=== PATIENT | male | born 1950 | race Caucasian/White ===

== ENCOUNTER 2016-11-18 09:49 | Inpatient (IN) | payer OTHER, BC ==
[~2016-11-18] VITALS: Ht 182.9 cm; Wt 106.1 kg
[~2016-11-18 09:49] MED LIST: ATORVASTATIN CA80 MG PO; FLEXERIL10 MG PO; PREDNISONE10 MG PO; ULTRAM50 MG PO; ZESTORETIC 20-1 EAC1 PO
[2016-11-18 12:03] LABS: HEMATOCRIT 44.3 % (38.0-50.0); MCH 29.1 PG (29.0-34.0); MCHC 32.5 G/DL (30.0-36.0); MCV 89.7 FL (86-99); PLATELET COUNT 198 K/uL (156-360); RBC DIS.WIDTH-CV 13.3 % (11.8-14.6); RBC DIS.WIDTH-SD 43.6 % (39-53); RED BLOOD COUNT 4.94 M/uL (4.00-5.50); WHITE BLOOD COUNT 10.1 K/uL (4.1-10.2)
[2016-11-18 12:12] LABS: INTER. NORMALIZED RATIO 1.1; PROTHROMBIN TIME 11.4 (9.2-11.2)
[2016-11-18 12:15] LABS: CHLORIDE 106 mEq/L (99-109); POTASSIUM 4.7 mEq/L (3.7-5.4); SODIUM 141 mEq/L (136-147)
[2016-11-18 12:17] LABS: GLUCOSE 130 mg/dL (70-99)
[2016-11-18 12:19] LABS: ANION GAP 9 MEQ/L (2-14); TOTAL BILIRUBIN 0.8 mg/dL (0.0-1.0)
[2016-11-18 12:21] LABS: ALKALINE PHOSPHATASE 72 IU/L (3-129); GFR ESTIMATE (CALCULATED) > 59 mL/min/
[2016-11-18 12:22] LABS: UREA NITROGEN (BUN) 19 mg/dL (9-23)
[2016-11-18] MEDS ORDERED: HYDROCHLOROTHIA25 MG PO (15:00)
[2016-11-18] MEDS ORDERED: LOPID600 MG PO (15:00)
[2016-11-18] MEDS ORDERED: LO-DOSE ASPIRIN81 M2 PO (15:01)
[2016-11-18 17:50] VITALS: BP 161/75
[2016-11-18 19:32] VITALS: BP 132/69
[2016-11-18 22:59] VITALS: BP 135/68
[2016-11-19 03:53] VITALS: BP 122/64
[2016-11-19 04:10] LABS: HEMATOCRIT 39.5 % (38.0-50.0); MCH 28.8 PG (29.0-34.0); MCHC 32.4 G/DL (30.0-36.0); MEAN PLAT.VOLUME 8.9 uM^3 (9.0-12.4); PLATELET COUNT 193 K/uL (156-360); RBC DIS.WIDTH-CV 13.3 % (11.8-14.6); RBC DIS.WIDTH-SD 43.7 % (39-53); RED BLOOD COUNT 4.44 M/uL (4.00-5.50); WHITE BLOOD COUNT 9.8 K/uL (4.1-10.2)
[2016-11-19 04:54] LABS: CHLORIDE 107 mEq/L (99-109); POTASSIUM 4.1 mEq/L (3.7-5.4); SODIUM 141 mEq/L (136-147)
[2016-11-19 04:56] LABS: GLUCOSE 123 mg/dL (70-99)
[2016-11-19 04:57] LABS: ANION GAP 10 MEQ/L (2-14)
[2016-11-19 04:58] LABS: TOTAL BILIRUBIN 0.8 mg/dL (0.0-1.0)
[2016-11-19 05:00] LABS: ALKALINE PHOSPHATASE 64 IU/L (3-129); GFR ESTIMATE (CALCULATED) > 59 mL/min/
[2016-11-19 05:01] LABS: UREA NITROGEN (BUN) 18 mg/dL (9-23)
[2016-11-19 07:21] VITALS: BP 130/76
[2016-11-19 10:53] VITALS: BP 141/70
[2016-11-19 15:15] VITALS: BP 115/64
[2016-11-19 23:32] VITALS: BP 133/64
[2016-11-20 03:19] VITALS: BP 142/82
[2016-11-20] MEDS ORDERED: XARELTO15 MG PO (07:05)
[2016-11-20 07:59] VITALS: BP 138/67
== END 2016-11-20 09:29 | disposition home or self-care (01) | DRG 176 ==
LOC: EME 09:49 → 5EAST 16:00 → EDOF 16:00 → 5EAST 17:49
PROVIDERS: Internal Medicine; Physician Assistant
DX: I26.99 Other pulmonary embolism without acute cor pulmonale (principal); I82.4Z1 Acute embolism and thrombosis of unspecified deep veins of right distal lower extremity; I10 Essential (primary) hypertension; E78.00 Pure hypercholesterolemia, unspecified; Z86.718 Personal history of other venous thrombosis and embolism
CPT/HCPCS: 71275; 80053; 83880; 85027; 85610; 85730; 93306; 93971; 99281; 99285